=== PATIENT | female | born 2000 | race African-American/Black ===

== ENCOUNTER 2025-04-07 19:32 | Emergency (ER) | payer OTHER, SELFPAY ==
--- NOTE | ~2025-04-07 | XR_ITS ---
CLINICAL HISTORY: low back pain 3 views lumbar spine Comparison: None Findings: No fractures or dislocations. Normal vertebral body alignment. No significant arthritic change. Sacroiliac joints unremarkable. An IUD overlies the pelvis. Impression: 1. Unremarkable lumbar spine This document has been electronically signed by: Enrique Myrick MD on 04/07/2025 20:41:27
[2025-04-07 19:43] VITALS: BP 122/75; PULSE 98; RESP 18; TEMP 36.8; O2SAT 98; BMI 29.0
--- NOTE | 2025-04-07 19:48 | ED_ITS ---
HPI - General Adult General Chief complaint: Back Pain/Injury Stated complaint: Back Pain Time Seen by Provider: 04/07/25 22:02 Source: patient Limitations: no limitations History of Present Illness ED Provider: Yesica Abdullahi PA-C HPI narrative: 24-year-old female presents with low back pain x1 week. Pain is radiating into bilateral hips, left greater than right. Patient denies trauma, new activity or new heavy lifting that could have precipitated her symptoms. She does have a 4-year-old child which she carries on a regular basis. Denies weakness of lower extremities, paresthesia, urinary retention or bowel incontinence. Denies history of kidney stones, mid back pain, abdominal pain, nausea vomiting, dysuria or hematuria. No fever. Related Data Previous Rx's ?Medication ?Instructions ?Recorded ketorolac 10 mg tablet 10 mg PO Q6H PRN pain #20 ta bs 04/07/25 methocarbamol 750 mg tablet 1,500 mg (2 x 750 mg) PO Q 8H PRN 04/07/25 pain, moderate #24 tabs Allergies Allergy/AdvReac Type Severity Reaction Status Date / Time No Known Allergies Allergy Verified 04/07/25 19:45 Review of Systems Review of Systems: Yes all other systems are reviewed and are negative Constitutional: Constitutional: Denies fatigue and Denies fever(s) Cardiovascular: Cardiovascular: Denies chest pain and Denies dyspnea Respiratory: Respiratory: Denies dyspnea Gastrointestinal: Gastrointestinal: Denies abdominal pain, Denies nausea and Denies vomiting Genitourinary: Genitourinary: Denies hematuria, Denies dysuria and Denies flank pain Musculoskeletal: Musculoskeletal: Reports back pain, Denies muscle weakness, Denies numbness, Denies radiating pain into limb and Denies tingling Neurologic: Denies numbness and Denies tingling Endocrine: Endocrine: Denies fatigue PMF Past Medical History Attestation statement: The following information was validated with the patient. Social History Social History Advance Directives: No Advance Directives Information Provided: No Do you have a plan to hurt others: No Plan Physical Exam ED Vital Signs: Vital Signs - 24 hr 04/07/25 19:43 04/08/25 00:10 Temperature 98.2 F 97.7 F Pulse Rate 98 95 Respiratory Rate 18 16 Blood Pressure 122/75 112/70 Pulse Oximetry 98 98 Oxygen Delivery Method Room Air Room Air BMI result Body Mass Index 29.0 Const Other: Alert Orientation/consciousness: patient oriented x3 Resp Effort & Inspection: normal respiratory effort Cardio Other: Normal peripheral perfusion Skin Other: Warm dry no rash Neuro General: patient oriented x3, gait normal, no focal motor deficits and CN's II- XI intact bilaterally Extrem Other: Strength 5/5 bilateral lower extremities Psych Other: Cooperative Course Course Course Narrative: RME: 24 yold female presents to the ED for low back pain and bilateral hip pain since last week. UA xray ordered. Medications Administered Discontinued Medications Generic Name Dose Route Start Last Admin Trade Name Quinnq PRN Reason Stop Dose Admin Ketorolac Tromethamine 15 mg 04/07/25 23:14 04/07/25 23:30 Ketorolac Tromethamine 15 Mg/Ml Vial IM 04/07/25 23:15 15 mg ONCE ONE Administration Methocarbamol 1,500 mg 04/07/25 23:19 04/07/25 23:29 Methocarbamol 750 Mg Tablet PO 04/07/25 23:20 1,500 mg ONCE ONE Administration Medical Decision Making Medical Decision Making [facility] Narrative: 24-year-old female presents with low back pain x1 week. Pain is radiating into bilateral hips, left greater than right. Patient denies trauma, new activity or new heavy lifting that could have precipitated her symptoms. She does have a 4-year-old child which she carries on a regular basis. Denies weakness of lower extremities, paresthesia, urinary retention or bowel incontinence. Denies history of kidney stones, mid back pain, abdominal pain, nausea vomiting, dysuria or hematuria. No fever. No chronic issues History: Per patient I have considered the following differential diagnoses: Lumbar strain, lumbar radiculopathy, cauda equina, compression fracture, renal colic, UTI Plan: Patient here with lumbar strain, not truly radicular, and without red flag signs symptoms concerning for cord compression. Also considered renal colic, however she is not having any mid back pain abdominal pain, flank pain or urinary symptoms to suggest this. Urine in process. We will treat accordingly I have independently reviewed the following tests: Labs: Urine not infected, not Differential Diagnosis Differential Diagnoses: The differential diagnosis associated with the presentation includes See [facility] Admission/Observation Consideration of admission/observation: Escalation of care including ad mission/observation considered Not applicable Lab Data [facility] Lab Attestation statement: I reviewed the patient's lab results. Labs: Lab Results 04/07/25 Range/Units 23:16 Urine Color Yellow Urine Appearance Clear Urine pH 5.5 (5.0-9.0) Ur Specific [place] 1.020 (1.005-1.025) Urine Protein Negative (Neg-Trace) mg/dL Urine Glucose (UA) Negative (Negative) mg/dL Urine Ketones Negative (Negative) mg/dL Urine Blood Small (1+) H (Negative) Urine Nitrite Negative (Negative) Ur Leukocyte Esterase Moderate (2+) H (Negative) Urine RBC 0-2 (0-2) /HPF Urine WBC 21-50 H (0-5) /HPF Ur Squamous Epith Cells 6-10 (0-2) /HPF Urine Bacteria 2+ (None Seen) Hyaline Casts 0-2 (0-2) /LPF Urine Test NEGATIVE (NEGATIVE) Discharge Plan Discharge Clinical Impression: Lumbosacral strain Qualifiers: Encounter type: initial encounter Qualified Code(s): S39.012A - Strain of muscle, fascia and tendon of lower back, initial encounter Patient Disposition: Home, Self-Care Instructions: Low Back Strain (ED), Lower Back Exercises (ED) Additional Instructions: You are being treated for lumbar strain. See home care instructions. Use the ketorolac as directed this is an anti-inflammatory take it with food. Use the methocarbamol as needed for further pain, this is a muscle relaxant, do not drive or operate machinery while taking this medication as it will cause drowsiness. Follow up with your primary care provider as needed. Your urine sample was not infected, you are not . Prescriptions: New ketorolac 10 mg tablet 10 mg PO Q6H PRN (Reason: pain) Qty: 20 0RF Rx Instructions: maximum total duration of 5 days from all oral, intranasal, or parenteral formulations, patient received an intramuscular dose of Toradol here in the emergency room methocarbamol 750 mg tablet 1,500 mg PO Q8H PRN (Reason: pain, moderate) Qty: 24 0RF Interventions: ED Discharge Assessment Last Done: 04/08/25 00:10 Discharge Date/Time: 04/08/25 00:17 Print Language: Mongolian
[2025-04-07 23:26] LABS: Appearance Urine Clear; Glucose Urine UA Negative (Negative); PH 5.5 (5.0-9.0); Specific Gravity - Urine 1.020 (1.005-1.025); UMIC TRIGGER UACC YES
[2025-04-07 23:32] LABS: UPreg QC Valid YES
[2025-04-07 23:41] LABS: UACC Culture Trigger YES
[2025-04-08 00:10] VITALS: BP 112/70; PULSE 95; RESP 16; TEMP 36.5; O2SAT 98
== END 2025-04-08 00:17 | disposition home or self-care (01) ==
PROVIDERS: Physician Assistant; Emergency Provider Emergency Medicine
DX: S39.012A Strain of muscle, fascia and tendon of lower back, initial encounter (principal); X50.9XXA Other and unspecified overexertion or strenuous movements or postures, initial encounter; Y93.F2 Activity, caregiving, lifting; Y92.9 Unspecified place or not applicable; M25.551 Pain in right hip; M25.552 Pain in left hip
CPT/HCPCS: 72100; 81001; 81025; 87086; 96372; 99283; 99284; J1885

== ENCOUNTER → 2025-04-07 19:47 | Outpatient (BNV) | payer OTHER, SELFPAY | PROVIDERS: Visit Provider Radiology Diagnostic Radiology | DX: M54.50 Low back pain, unspecified (principal) | CPT/HCPCS: 72100 ==